=== PATIENT | male | born 1960 | race Caucasian/White ===

== ENCOUNTER → 2017-03-14 | Outpatient (CLI) | payer MEDICARE, OTHER ==
[~2017-03-14] MED LIST: AMLO10TA57; CATAPRESS; CELLCEPT; EZET10TA17; FOLIC ACID; HUMALOG; LANTUS SQ; LISI-114; PRED-219; RAPAMUNE
== END ==
LOC: LABN.FMC 07:29
PROVIDERS: ATTEND Internal Medicine Endocrinology, Diabetes & Metabolism
DX: E10.65 Type 1 diabetes mellitus with hyperglycemia (principal); E16.2 Hypoglycemia, unspecified; Z79.4 Long term (current) use of insulin; Z96.41 Presence of insulin pump (external) (internal)
CPT/HCPCS: 83036